=== PATIENT | male | born 1980 | race Caucasian/White ===

== ENCOUNTER → 2020-04-17 | Outpatient (CLI) | payer BC ==
[~2020-04-17] MED LIST: ESOM20 PO; LISI20 PO; OMEP40CA12 PO; ONDA4ODT MM; OXYACE5T PO; SERT25 PO
== END | disposition home or self-care (01) ==
LOC: LAB EV 08:00 → LAB SHORT 08:00
DX: R10.11 Right upper quadrant pain (principal)
CPT/HCPCS: 87338